=== PATIENT | male | born 1955 | race Caucasian/White ===

== ENCOUNTER → 2016-12-29 | Outpatient (CLI) | payer BC | LOC: M LAB 09:10 | PROVIDERS: ATTEND Ophthalmology | DX: C44.122 Squamous cell carcinoma of skin of right eyelid, including canthus (principal) ==

== ENCOUNTER → 2017-01-05 | Outpatient (REF) | payer BC | LOC: M LAB REF 17:48 | PROVIDERS: ATTEND Ophthalmology | DX: D23.11 Other benign neoplasm of skin of right eyelid, including canthus (principal) ==

== ENCOUNTER 2022-10-15 11:06 | Day surgery (SDC) | payer MEDICARE ==
[~2022-10-15] VITALS: Ht 167.6 cm; Wt 112.6 kg
[~2022-10-15 11:06] MED LIST: ATOR40TA75 PO; ECOT81TA5 PO; FLUT1BLS8 INH; NS 1,000 ML IV ONE; SEMA0.257 SC
[2022-10-15 12:45] VITALS: TEMP 96.2
[2022-10-15 12:57] VITALS: BP 129/70; O2SAT 97
== END 2022-10-15 12:57 | disposition home or self-care (01) ==
LOC: M OPP 11:06
PROVIDERS: ATTEND Surgery
DX: Z12.11 Encounter for screening for malignant neoplasm of colon (principal); K57.30 Diverticulosis of large intestine without perforation or abscess without bleeding; K64.0 First degree hemorrhoids